=== PATIENT | female | born 1990 | race Two or more races ===

== ENCOUNTER → 2019-10-25 | Outpatient (CLI) | payer OTHER | END | disposition home or self-care (01) | LOC: PRENATAL 10:00 | DX: O35.3XX1 Maternal care for (suspected) damage to fetus from viral disease in mother, fetus 1 (principal) ==

== ENCOUNTER 2020-01-26 19:34 | Emergency (ER) | payer OTHER ==
[~2020-01-26] VITALS: Ht 160 cm; Wt 72.1 kg
[2020-01-26] MEDS ORDERED: PRENATABS RX T1 EACH (19:42)
== END 2020-01-26 23:30 | disposition home or self-care (01) ==
LOC: ER 19:34
DX: B34.9 Viral infection, unspecified (principal); J32.8 Other chronic sinusitis; Z20.828 Contact with and (suspected) exposure to other viral communicable diseases

== ENCOUNTER 2020-03-10 06:19 | Inpatient (IN) | payer OTHER ==
[~2020-03-10] VITALS: Ht 160 cm; Wt 79.4 kg
[~2020-03-10 06:19] MED LIST: PRENATABS RX T1 EACH
[2020-03-10] MEDS ORDERED: IRON325 MG PO (06:50)
== END 2020-03-12 12:02 | disposition home or self-care (01) | DRG 807 ==
LOC: LDR 06:19 → OB/GYN 06:19 → LDR 07:10 → OB/GYN 16:01
PROVIDERS: ADMIT Specialist; ATTEND Specialist
PROC: 10E0XZZ Delivery of Products of Conception, External Approach (ICD-10-PCS; principal; 2020-03-10)
PROC: 4A1HXFZ Monitoring of Products of Conception, Cardiac Rhythm, External Approach (ICD-10-PCS; 2020-03-10)
PROC: 3E033VJ Introduction of Other Hormone into Peripheral Vein, Percutaneous Approach (ICD-10-PCS; 2020-03-10)
DX: O99.824 Streptococcus B carrier state complicating childbirth (principal); Z20.828 Contact with and (suspected) exposure to other viral communicable diseases; Z37.0 Single live birth; Z3A.39 39 weeks gestation of pregnancy